=== PATIENT | female | born 2000 | race Caucasian/White ===

== ENCOUNTER 2020-07-01 13:19 | Day surgery (SDC) | payer MEDICAID ==
[2020-07-01 13:38] VITALS: BMI 44.6
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
== END 2020-07-01 15:05 | disposition home health service (06) ==
LOC: L&D/OP 13:19
PROVIDERS: ATTEND Family Medicine
DX: O36.8120 Decreased fetal movements, second trimester, not applicable or unspecified (principal); Z3A.27 27 weeks gestation of pregnancy
CPT/HCPCS: 59025; 99282

== ENCOUNTER 2020-07-17 12:15 | Emergency (ER) | payer MEDICAID ==
[~2020-07-17 12:15] MED LIST: Iopamidol-370 76% 500 ML 1 ML ONE
[2020-07-17] MEDS ORDERED: Metoclopramide HCl 10 MG/2 ML VIAL ONE ×2 (13:03→13:09)
[2020-07-17] MEDS ORDERED: Magnesium 2 GM/50 ML BAG (IN WATER) ONE (13:03)
[2020-07-17 13:08] LABS: #Monocytes 0.5 thou/uL (0.11-0.59); #Neutrophils 7.2 thou/uL (1.40-6.50); %Basophils 0.3 % (0.0-1.0); %Eosinophils 0.5 % (0.0-10.0); %Lymphocytes 20.4 % (28.0-48.0); %Monocytes 5.6 % (0.0-4.0); %Neutrophils 73.2 % (31.0-61.0); Hemoglobin 10.8 g/dL (12.0-16.0); Mean Corpuscular HGB CONC 33.3 g/dL (32.0-36.0); Mean Corpuscular Hemoglobin 27.4 pg (25.0-35.0); Mean Corpuscular Volume 82.1 fL (78.0-98.0); Mean Platelet Volume 8.2 fL (7.4-10.4); Platelet Count 297 thou/uL (130-400); RBC Distribution Width 14.9 % (11.5-14.5); Red Blood Cell (RBC) Count 3.96 mill/uL (4.00-5.20); White Blood Cell (WBC) Count 9.8 thou/uL (4.8-10.8)
[2020-07-17 13:35] LABS: ALT (SGPT) Less than 7 U/L (8-55); AST (SGOT) 9 U/L (5-34); Albumin 3.5 g/dL (3.5-5.0); Alkaline Phosphatase 71 U/L (40-100); Anion Gap 11 mmol/L (10-20); BUN (Urea Nitrogen) 7 mg/dL (7.0-18.7); Bilirubin, Total 0.3 mg/dL (0.2-1.2); Calc. Creatinine Clearance 0 mL/min (70-130); Calcium 9.1 mg/dL (7.8-10.44); Carbon Dioxide 21 mmol/L (22-29); Chloride 108 mmol/L (98-107); Estimated GFR-MDRD Greater than 90; Globulin 3.2 g/dL (2.4-3.5); Glucose 97 mg/dL (70-105); Lipase 4 U/L (8-78); Protein, Total 6.7 g/dL (6.0-8.3); Sodium 136 mmol/L (136-145)
--- NOTE | 2020-07-17 13:41 | RAD ---
PORTABLE CHEST 1 VIEW: Date: 07/17/2020 Time: 1327 hours HISTORY: Chest pain, shortness of breath. FINDINGS: The heart size is normal. No lobar consolidation, pneumothoraces, or pleural effusions are seen. IMPRESSION: No radiographic evidence of acute cardiopulmonary process. POS: TRUEA
[2020-07-17 15:09] LABS: Bilirubin Negative (Negative); Blood, Urine Negative (Negative); Clarity Turbid (Clear); Glucose, Urine (Dipstick) Normal (Negative); Ketone, Urine Negative (Negative); Leukocyte Negative Leu/uL (Negative); Nitrite Negative (Negative); Protein, Urine (Dipstick) 10 mg/dL (Neg-Trace); Specific Gravity, Urine 1.022 (1.002-1.036); Urobilinogen Normal mg/dL (Less than 2); pH, Urine 6.5 (5.0-9.0)
--- NOTE | 2020-07-17 15:16 | CT ---
CTA THORAX UTILIZING IV CONTRAST WITH PE PROTOCOL AND 3D REFORMATTED IMAGING: Date: 07/17/2020 INDICATION: History of and elevated D-Dimer. FINDINGS: No definite central or segmental pulmonary embolus is identified. No definite right heart dysfunction is noted. Heart and great vessels appear within normal limits. No enlarged lymph nodes are present. Visualized upper abdomen reveals no definite acute abnormality. No definite acute osseous abnormality is evident. IMPRESSION: No central or segmental pulmonary embolus identified. POS: AH
== END 2020-07-17 15:49 | disposition home or self-care (01) ==
LOC: ERS 12:15
DX: O99.891 Other specified diseases and conditions complicating pregnancy (principal); R07.89 Other chest pain; O99.343 Other mental disorders complicating pregnancy, third trimester; Z3A.29 29 weeks gestation of pregnancy; F43.10 Post-traumatic stress disorder, unspecified; O16.3 Unspecified maternal hypertension, third trimester
CPT/HCPCS: 71045; 71275; 80053; 81003; 83690; 84484; 85025; 85379; 93005; J2765; J3475

== ENCOUNTER 2020-07-17 15:44 | Day surgery (SDC) | payer MEDICAID ==
[2020-07-17 16:30] VITALS: BMI 45.3
[2020-07-17 16:40] VITALS: BP 118/68; TEMP 98.1
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
[2020-07-17] MEDS ORDERED: hydrALAZINE 20 MG/ML VIAL SLOW IVP PRN (18:57)
[2020-07-17 19:34] LABS: Creatinine, Urine 37.77 mg/dL (47-110); Protein, Urine Random Quant Less than 10 mg/dL (1-14)
== END 2020-07-17 19:25 | disposition home or self-care (01) ==
LOC: L&D/OP 15:44
PROVIDERS: ATTEND Student in an Organized Health Care Education/Training Program
DX: O99.891 Other specified diseases and conditions complicating pregnancy (principal); G43.909 Migraine, unspecified, not intractable, without status migrainosus; R07.89 Other chest pain; O99.213 Obesity complicating pregnancy, third trimester; E66.01 Morbid (severe) obesity due to excess calories; O10.913 Unspecified pre-existing hypertension complicating pregnancy, third trimester; O34.211 Maternal care for low transverse scar from previous cesarean delivery; Z3A.29 29 weeks gestation of pregnancy; Z79.899 Other long term (current) drug therapy; Z86.19 Personal history of other infectious and parasitic diseases; Z91.42 Personal history of forced labor or sexual exploitation
CPT/HCPCS: 71045; 71275; 80053; 81003; 82570; 83690; 84156; 84484; 85025; 85379; 93005; 96365; 96368; 99285; J2765; J3475; Q9967

== ENCOUNTER 2020-08-05 11:34 | Day surgery (SDC) | payer MEDICAID ==
[2020-08-05 12:10] VITALS: BP 126/73; TEMP 98.3; BMI 46.1
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
[2020-08-05] MEDS ORDERED: hydrALAZINE 20 MG/ML VIAL SLOW IVP PRN (13:18)
[2020-08-05 13:38] LABS: #Lymphocytes 1.4 thou/uL (1.20-3.40); #Monocytes 0.4 thou/uL (0.11-0.59); #Neutrophils 3.4 thou/uL (1.40-6.50); %Basophils 0.1 % (0.0-1.0); %Eosinophils 0.7 % (0.0-10.0); %Lymphocytes 26.7 % (28.0-48.0); %Monocytes 6.8 % (0.0-4.0); %Neutrophils 65.7 % (31.0-61.0); Hemoglobin 10.4 g/dL (12.0-16.0); Mean Corpuscular HGB CONC 31.2 g/dL (32.0-36.0); Mean Corpuscular Hemoglobin 26.4 pg (25.0-35.0); Mean Corpuscular Volume 84.7 fL (78.0-98.0); Mean Platelet Volume 7.5 fL (7.4-10.4); Platelet Count 232 thou/uL (130-400); RBC Distribution Width 17.1 % (11.5-14.5); Red Blood Cell (RBC) Count 3.93 mill/uL (4.00-5.20); White Blood Cell (WBC) Count 5.2 thou/uL (4.8-10.8)
[2020-08-05 14:00] LABS: ALT (SGPT) 11 U/L (8-55); AST (SGOT) 17 U/L (5-34); Albumin 3.4 g/dL (3.5-5.0); Alkaline Phosphatase 86 U/L (40-100); Anion Gap 13 mmol/L (10-20); BUN (Urea Nitrogen) 6 mg/dL (7.0-18.7); Bilirubin, Total 0.4 mg/dL (0.2-1.2); Calc. Creatinine Clearance 270 mL/min (70-130); Calcium 8.9 mg/dL (7.8-10.44); Carbon Dioxide 21 mmol/L (22-29); Chloride 108 mmol/L (98-107); Estimated GFR-MDRD Greater than 90; Globulin 2.9 g/dL (2.4-3.5); Glucose 91 mg/dL (70-105); Potassium 3.8 mmol/L (3.5-5.1); Protein, Total 6.3 g/dL (6.0-8.3); Sodium 138 mmol/L (136-145)
[2020-08-05 14:04] LABS: Creatinine, Urine 380.85 mg/dL (47-110)
[2020-08-05] MEDS ORDERED: Metoclopramide HCl 10 MG/2 ML VIAL IVP SCH (14:45)
[2020-08-05] MEDS ORDERED: diphenhydrAMINE 50 MG/ML VIAL IVP SCH ×2 (14:45→16:00)
[2020-08-05] MEDS ORDERED: Lactated Ringer's 500 ML IV SCH ×2 (14:45→16:00)
[2020-08-05] MEDS ORDERED: diphenhydrAMINE 25 MG CAP PO SCH (15:45)
[2020-08-05 16:36] LABS: Amphetamine Not Detected (NotDetected); Barbiturates Screen Not Detected (NotDetected); Benzodiazepine Screen Not Detected (NotDetected); Cocaine Metabolite Screen Not Detected (NotDetected); Medtox Control Line Valid? VALID (VALID); Medtox Reader # READER 1; Methadone Not Detected (NotDetected); Methamphetamine Not Detected (NotDetected); Opiate Screen Not Detected (NotDetected); Oxycodone Screen Not Detected (NotDetected); Phencyclidine (PCP) Not Detected (NotDetected); THC/Cannabinoid Screen Not Detected (NotDetected); Tricyclic Screen Not Detected (NotDetected)
--- NOTE | 2020-08-05 16:36 | CT ---
CT BRAIN 08/05/20 PROVIDED CLINICAL HISTORY: Headaches and blurry vision. FINDINGS: The ventricular system appears normal in size and morphology. There is no evidence for intracranial h emorrhage or mass effect. There is no abnormality of the cerebral white matter apparent by CT. The ex tracranial soft tissues and osseous structures demonstrate an unremarkable CT appearance. IMPRESSION: No evidence for an acute intracranial abnormality. POS: HEATH
[2020-08-05] MEDS: Metoclopramide HCl 10 MG/2 ML VIAL IVP SCH ×2 (16:59→17:32)
[2020-08-05] MEDS ORDERED: Metoclopramide HCl 10 MG TAB PO SCH (17:00)
[2020-08-05] MEDS ORDERED: Lactated Ringer's 1,000 ML IV SCH (17:30)
--- NOTE | 2020-08-05 18:42 | PDOC.BPN ---
- Brief Progress Note Encounter Date: 08/05/20 Encounter Time: 18:39 Reevaluated patient after reports she was feeling better. Patient's diplopia had resolved and patient denies GREENFIELD, VSS. Visual acuity was 20/50 uncorrected, 20/20 corrected. Patient had steady gate and 4 rodriguez of vision intact. Patient will be DC'd home, will need to follow up with [facility] on Friday at scheduled appointment. Discussed with attending, Dr. Mireles.
== END 2020-08-05 18:40 | disposition home or self-care (01) ==
LOC: L&D/OP 11:34
PROVIDERS: ATTEND Family Medicine
DX: O99.891 Other specified diseases and conditions complicating pregnancy (principal); G43.909 Migraine, unspecified, not intractable, without status migrainosus; H53.2 Diplopia; O10.913 Unspecified pre-existing hypertension complicating pregnancy, third trimester; O99.213 Obesity complicating pregnancy, third trimester; E66.01 Morbid (severe) obesity due to excess calories; O99.513 Diseases of the respiratory system complicating pregnancy, third trimester; J45.909 Unspecified asthma, uncomplicated; O34.211 Maternal care for low transverse scar from previous cesarean delivery; O09.33 Supervision of pregnancy with insufficient antenatal care, third trimester; Z3A.32 32 weeks gestation of pregnancy; Z79.899 Other long term (current) drug therapy; Z62.813 Personal history of forced labor or sexual exploitation in childhood
CPT/HCPCS: 36415; 70450; 80053; 80306; 82570; 84156; 85025; J1200; J2765

== ENCOUNTER 2020-08-17 20:55 | Day surgery (SDC) | payer MEDICAID ==
[2020-08-17 21:32] VITALS: BMI 45.5
[2020-08-17] MEDS ORDERED: hydrALAZINE 20 MG/ML VIAL SLOW IVP PRN (23:10)
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
--- NOTE | 2020-08-18 06:45 | PDOC.BPN ---
- Brief Progress Note Encounter Date: 08/18/20 Encounter Time: 07:05 S: Denies any complaints this morning. No abdominal pain. Not feeling any contractions. Has not had any additional vaginal bleeding. O: Vitals WNL Gen: NAD HEENT: MMM Pulm: No resp distress Card: RRR Ext: Full ROMx4 Neuro: A&O x3 Psych: Normal affect A/P: Pt is a 19 yo at 33 wga by LMP who presents with chief complaint of vaginal bleeding and direct fall to belly. #Vaginal bleeding -stopped spontaneously -VP3 negative #direct trauma to belly -reassuring status on >6hr continuous monitoring -no signs of abruption Plan: DC home with precautions and close follow up.
[2020-08-18 08:27] VITALS: BP 130/60; TEMP 97.6
[2020-08-18] MEDS ORDERED: Labetalol 100 MG TAB PO SCH (09:00)
[2020-08-18] MEDS ORDERED: Prenatal Vitamin 1 TAB PO SCH (09:00)
== END 2020-08-18 08:15 | disposition home or self-care (01) ==
LOC: L&D/OP 20:55
PROVIDERS: ATTEND Obstetrics & Gynecology
DX: O46.93 Antepartum hemorrhage, unspecified, third trimester (principal); O99.891 Other specified diseases and conditions complicating pregnancy; N89.8 Other specified noninflammatory disorders of vagina; O10.913 Unspecified pre-existing hypertension complicating pregnancy, third trimester; O34.211 Maternal care for low transverse scar from previous cesarean delivery; Z3A.33 33 weeks gestation of pregnancy; Z79.899 Other long term (current) drug therapy; Z91.410 Personal history of adult physical and sexual abuse; W10.1XXA Fall (on)(from) sidewalk curb, initial encounter
CPT/HCPCS: 87480; 87510; 87660; 99285

== ENCOUNTER 2022-04-28 12:39 | Emergency (ER) | payer MEDICAID ==
[2022-04-28 13:55] LABS: #Eosinphils 0.1 thou/uL (0.0-0.7); #Lymphocytes 2.1 thou/uL (1.20-3.40); #Monocytes 0.4 thou/uL (0.11-0.59); #Neutrophils 2.2 thou/uL (1.40-6.50); %Basophils 0.1 % (0.0-1.0); %Eosinophils 2.9 % (0.0-10.0); %Lymphocytes 43.7 % (21.0-51.0); %Monocytes 7.8 % (0.0-10.0); %Neutrophils 45.6 % (42.0-75.0); Hemoglobin 11.9 g/dL (12.0-16.0); Mean Corpuscular HGB CONC 32.3 g/dL (32.0-36.0); Mean Corpuscular Hemoglobin 26.8 pg (27.0-31.0); Mean Platelet Volume 8.4 fL (7.4-10.4); Platelet Count 209 thou/uL (130-400); RBC Distribution Width 15.3 % (11.5-14.5); Red Blood Cell (RBC) Count 4.43 mill/uL (4.20-5.40); White Blood Cell (WBC) Count 4.7 thou/uL (4.8-10.8)
[2022-04-28 14:18] LABS: ALT (SGPT) 75 U/L (8-55); AST (SGOT) 43 U/L (5-34); Alkaline Phosphatase 47 U/L (40-110); Anion Gap 13 mmol/L (10-20); BUN (Urea Nitrogen) 9 mg/dL (7.0-18.7); Bilirubin, Total 0.3 mg/dL (0.2-1.2); Calc. Creatinine Clearance 0 mL/min (70-130); Calcium 9.1 mg/dL (7.8-10.44); Carbon Dioxide 21 mmol/L (22-29); Chloride 106 mmol/L (98-107); Estimated GFR 115; Globulin 2.6 g/dL (2.4-3.5); Glucose 98 mg/dL (70-105); Lipase 8 U/L (8-78); Potassium 4.1 mmol/L (3.5-5.1); Protein, Total 6.6 g/dL (6.0-8.3); Sodium 136 mmol/L (136-145)
[2022-04-28] MEDS ORDERED: Ondansetron PF 4 MG/2 ML Vial ONE (14:42)
[2022-04-28 14:55] LABS: Bilirubin Negative (Negative); Blood, Urine Negative (Negative); Clarity Clear (Clear); Glucose, Urine (Dipstick) Normal (Negative); Ketone, Urine Negative (Negative); Leukocyte Negative Leu/uL (Negative); Nitrite Negative (Negative); Protein, Urine (Dipstick) Negative (Neg-Trace); Specific Gravity, Urine 1.015 (1.002-1.036); Urobilinogen Normal mg/dL (Less than 2); pH, Urine 7.5 (5.0-9.0)
== END 2022-04-28 16:08 | disposition home or self-care (01) ==
LOC: ERS 12:39
DX: O21.9 Vomiting of pregnancy, unspecified (principal); O26.891 Other specified pregnancy related conditions, first trimester; R10.9 Unspecified abdominal pain; O13.1 Gestational [pregnancy-induced] hypertension without significant proteinuria, first trimester; Z3A.01 Less than 8 weeks gestation of pregnancy
CPT/HCPCS: 36415; 76856; 80053; 81003; 83690; 84702; 85025; 86900; 86901; 96361; 96374; J2405

== ENCOUNTER 2022-05-26 19:15 | Emergency (ER) | payer MEDICAID, OTHER ==
[2022-05-26 20:05] LABS: #Basophils 0.1 thou/uL (0.0-0.2); #Eosinphils 0.1 thou/uL (0.0-0.7); #Lymphocytes 3.2 thou/uL (1.20-3.40); #Monocytes 0.5 thou/uL (0.11-0.59); #Neutrophils 3.3 thou/uL (1.40-6.50); %Basophils 0.7 % (0.0-1.0); %Lymphocytes 45.1 % (21.0-51.0); %Monocytes 6.3 % (0.0-10.0); %Neutrophils 45.9 % (42.0-75.0); Hemoglobin 11.4 g/dL (12.0-16.0); Mean Corpuscular HGB CONC 33.1 g/dL (32.0-36.0); Mean Corpuscular Hemoglobin 27.3 pg (27.0-31.0); Mean Corpuscular Volume 82.6 fL (78.0-98.0); Mean Platelet Volume 7.7 fL (7.4-10.4); Platelet Count 212 thou/uL (130-400); Red Blood Cell (RBC) Count 4.16 mill/uL (4.20-5.40); White Blood Cell (WBC) Count 7.2 thou/uL (4.8-10.8)
[2022-05-26] MEDS ORDERED: Acetaminophen 500 MG TAB ONE (20:08)
[2022-05-26 20:26] LABS: ALT (SGPT) 37 U/L (8-55); AST (SGOT) 25 U/L (5-34); Albumin 3.9 g/dL (3.5-5.0); Alkaline Phosphatase 42 U/L (40-110); Anion Gap 13 mmol/L (10-20); BUN (Urea Nitrogen) 11 mg/dL (7.0-18.7); Calc. Creatinine Clearance 0 mL/min (70-130); Calcium 9.4 mg/dL (7.8-10.44); Carbon Dioxide 22 mmol/L (22-29); Chloride 108 mmol/L (98-107); Estimated GFR 112; Globulin 2.8 g/dL (2.4-3.5); Glucose 100 mg/dL (70-105); Potassium 3.8 mmol/L (3.5-5.1); Protein, Total 6.7 g/dL (6.0-8.3); Sodium 139 mmol/L (136-145)
== END 2022-05-26 20:38 | disposition home or self-care (01) ==
LOC: ERS 19:15
DX: R07.9 Chest pain, unspecified (principal); R06.02 Shortness of breath
CPT/HCPCS: 71045; 80053; 83880; 84484; 85025; 85379; 93005